=== PATIENT | male | born 1955 | race Caucasian/White ===

== ENCOUNTER 2017-08-12 08:14 | Day surgery (SDC) | payer BC ==
[~2017-08-12] VITALS: Ht 180.3 cm; Wt 162.5 kg
[~2017-08-12 08:14] MED LIST: AMOXICILLIN875 MG PO; ASPIRIN 32325 MG/TAB PO; AVAPRO300 M1 PO; EPA/GLA1 SGL PO; GLUCOPHAGE1000 MG PO; GLUCOPHAGE500 MG/TAB PO; HCTZ 25MG TAB25 MG PO; LASIX 20MG TABL20 MG PO; LEVAQUIN 750MG750 M1 PO; LEXAPRO 10MG10 MG PO; LIPITOR 10MG10 MG PO; PRIL40 PO; TOPROL XL 25MG25 MG PO
[2017-08-12 09:16] VITALS: BP 131/86; PULSE 66; TEMP 98
[2017-08-12] MEDS ORDERED: ASPIRIN 81M81 MG/TA2 PO (09:24)
[2017-08-12] MEDS ORDERED: EPA FISH OIL1 SGL PO (09:27)
[2017-08-12] MEDS ORDERED: LIPITOR20 MG PO (09:27)
[2017-08-12] MEDS ORDERED: MULTI VITAMINS1 TAB PO (09:28)
[2017-08-12] MEDS ORDERED: PRINIVIL5 MG PO (09:28)
[2017-08-12] MEDS ORDERED: NITROSTAT0.4 MG/TAB SL (09:29)
[2017-08-12 10:20] VITALS: BP 156/97; PULSE 80; TEMP 98.7
[2017-08-12 10:35] VITALS: BP 150/96; PULSE 68
== END 2017-08-12 11:10 | disposition home or self-care (01) ==
LOC: SDCO 08:14
DX: Z12.11 Encounter for screening for malignant neoplasm of colon (principal); K57.30 Diverticulosis of large intestine without perforation or abscess without bleeding; I10 Essential (primary) hypertension; E78.00 Pure hypercholesterolemia, unspecified; Z95.1 Presence of aortocoronary bypass graft
CPT/HCPCS: OP; J2250; J3010; J7030

== ENCOUNTER 2017-12-13 15:24 | Emergency (ER) | payer BC ==
[~2017-12-13] VITALS: Ht 182.9 cm; Wt 162.7 kg
[~2017-12-13 15:24] MED LIST changes: +ASPIRIN 81M81 MG/TA2 PO; +EPA FISH OIL1 SGL PO; +LIPITOR20 MG PO; +MULTI VITAMINS1 TAB PO; +NITROSTAT0.4 MG/TAB SL; +PRINIVIL5 MG PO
[2017-12-13 15:26] VITALS: TEMP 99.5
[2017-12-13 17:16] LABS: BASO # 0.1 (0.0-0.2); BASO % 0.8 % (0.0-2.0); EOS # 0.3 (0.0-0.7); EOS % 2.9 % (0-4.0); GRAN # 6.9 (1.4-6.5); GRAN % 59.2 % (42.2-75.2); HEMATOCRIT 46.1 % (42.0-52.0); HEMOGLOBIN 15.6 g/dl (13.5-18.0); LYMPH # 3.1 (1.2-3.4); MEAN CELL VOLUME 89 fl (80.0-100.0); MEAN CORPUSCULAR HEMOGLOBIN 30 pg (27.0-31.0); MEAN CORPUSCULAR HGB CONC 34 g/dl (33.0-37.0); MEAN PLATELET VOLUME 8.8 fl (7.4-10.4); MONO # 1.1 (0.1-0.6); MONO % 9.8 % (1.7-9.3); PLATELET COUNT 262 K/mm3 (130-400); RED BLOOD COUNT 5.18 M/mm3 (4.20-5.60); REDCELL DISTRIBUTION WIDTH-CV 12.4 % (11.5-14.5)
[2017-12-13 17:27] LABS: C-REACTIVE PROTEIN 0.9 mg/dL (0.0-0.9); CALCIUM 9.4 mg/dL (8.4-10.2); CREATININE, serum 0.91 mg/dL (0.66-1.25); POTASSIUM 4.2 mmol/L (3.4-5.0)
[2017-12-13 17:43] LABS: ERYTHROCYTE SEDIMENTATION RATE 11 mm/hr (0-30)
[2017-12-13 18:49] VITALS: BP 140/85; PULSE 80
== END 2017-12-13 18:55 | disposition home or self-care (01) ==
LOC: COL.ER 15:24
PROVIDERS: Emergency Medicine
DX: L03.311 Cellulitis of abdominal wall (principal); L03.313 Cellulitis of chest wall; E11.9 Type 2 diabetes mellitus without complications; I10 Essential (primary) hypertension; F17.210 Nicotine dependence, cigarettes, uncomplicated; Z90.89 Acquired absence of other organs; Z95.1 Presence of aortocoronary bypass graft; Z79.84 Long term (current) use of oral hypoglycemic drugs; Z79.82 Long term (current) use of aspirin
CPT/HCPCS: J3370; J7050

== ENCOUNTER 2018-05-07 16:06 | Emergency (ER) | payer BC ==
[~2018-05-07] VITALS: Wt 147.3 kg
[2018-05-07 16:09] VITALS: TEMP 98.6
[2018-05-07 16:34] LABS: BASO # 0.1 (0.0-0.2); BASO % 0.9 % (0.0-2.0); EOS # 0.5 (0.0-0.7); EOS % 4.7 % (0-4.0); GRAN % 54.4 % (42.2-75.2); HEMATOCRIT 49.2 % (42.0-52.0); HEMOGLOBIN 16.4 g/dl (13.5-18.0); LYMPH # 3.5 (1.2-3.4); LYMPH % 31.6 % (20.0-51.0); MEAN CELL VOLUME 91 fl (80.0-100.0); MEAN CORPUSCULAR HEMOGLOBIN 30 pg (27.0-31.0); MEAN CORPUSCULAR HGB CONC 33 g/dl (33.0-37.0); MEAN PLATELET VOLUME 8.8 fl (7.4-10.4); MONO # 0.9 (0.1-0.6); MONO % 7.9 % (1.7-9.3); PLATELET COUNT 292 K/mm3 (130-400); RED BLOOD COUNT 5.42 M/mm3 (4.20-5.60); REDCELL DISTRIBUTION WIDTH-CV 12.3 % (11.5-14.5)
[2018-05-07 16:35] LABS: INR 0.9 (0.8-3.0); PROTHROMBIN TIME 10.4 SECONDS (9.7-12.8)
[2018-05-07 16:38] LABS: PARTIAL THROMBOPLASTIN TIME 34.6 SECONDS (26.0-37.0)
[2018-05-07 16:42] LABS: D-DIMER < 200.00 ng/mLDDu (200-230)
[2018-05-07 16:45] LABS: ALANINE AMINOTRANSFERASE 68 U/L (21-72); ALBUMIN 4.3 gm/dL (3.5-5.0); ALKALINE PHOSPHATASE 102 U/L (50-136); ANION GAP 8 mmol/L (7-16); AST,SGOT 46 U/L (15-37); BILIRUBIN,TOTAL 0.4 mg/dL (0.0-1.0); BLOOD UREA NITROGEN 16 mg/dL (9-20); CALCIUM 9.2 mg/dL (8.4-10.2); CARBON DIOXIDE 27 mmol/L (22-30); CHLORIDE 101 mmol/L (98-107); CREATININE, serum 0.93 mg/dL (0.66-1.25); GLUCOSE 128 mg/dL (74-106); POTASSIUM 4.2 mmol/L (3.4-5.0); SODIUM 137 mmol/L (137-145); TOTAL PROTEIN 7.9 gm/dL (6.4-8.2)
[2018-05-07 17:02] LABS: C-REACTIVE PROTEIN < 0.5 mg/dL (0.0-0.9)
[2018-05-07 17:03] LABS: TROPONIN-I < 0.012 ng/mL (0.000-0.034)
[2018-05-07] MEDS ORDERED: LOPRESSOR 550 MG/TAB PO (17:13)
[2018-05-07 19:12] VITALS: BP 126/83; PULSE 71
== END 2018-05-07 19:18 | disposition home or self-care (01) ==
LOC: COL.ER 16:06
PROVIDERS: Family Medicine
DX: R07.89 Other chest pain (principal); I25.10 Atherosclerotic heart disease of native coronary artery without angina pectoris; Z95.5 Presence of coronary angioplasty implant and graft; Z79.82 Long term (current) use of aspirin
CPT/HCPCS: J1885

== ENCOUNTER 2019-01-05 15:40 | Emergency (ER) | payer BC ==
[~2019-01-05] VITALS: Ht 182.9 cm; Wt 154.5 kg
[~2019-01-05 15:40] MED LIST changes: +LOPRESSOR 550 MG/TAB PO
[2019-01-05 16:04] VITALS: BP 122/65
[2019-01-05] MEDS ORDERED: TRULICITY0.75 MG/0. SQ (16:21)
[2019-01-05] MEDS ORDERED: CEPHALEXIN500 M1 PO (18:05)
[2019-01-06 00:48] VITALS: PULSE 72
== END 2019-01-05 18:40 | disposition home or self-care (01) ==
LOC: COL.ER 15:40
DX: S41.111A Laceration without foreign body of right upper arm, initial encounter (principal); K21.9 Gastro-esophageal reflux disease without esophagitis; I10 Essential (primary) hypertension; E11.9 Type 2 diabetes mellitus without complications; Z23 Encounter for immunization; Z79.84 Long term (current) use of oral hypoglycemic drugs; Z79.82 Long term (current) use of aspirin; W26.8XXA Contact with other sharp object(s), not elsewhere classified, initial encounter; Y92.009 Unspecified place in unspecified non-institutional (private) residence as the place of occurrence of the external cause